=== PATIENT | female | born 1960 | race Caucasian/White ===

== ENCOUNTER → 2016-04-02 | Outpatient (CLI) | payer OTHER ==
[~2016-04-02] MED LIST: ADVAIR 100/501 DISK IH; CLONAZEPAM1 MG PO; FLEXERIL10 MG PO; FUROSEMIDE40 MG PO; HYDROCHLOROTHIA25 MG PO; JANUMET 50/11 TABLET PO; LEVAQUIN750 MG PO; LIBRIUM25 MG PO; LOTENSIN10 MG PO; NADOLOL20 MG PO; NEURONTIN100 MG PO; NEURONTIN400 MG PO; NICOTINE PATCH1 EAC2 TD; NORVASC5 MG PO; OXAYDO5 MG PO; PANTOPRAZOLE SO40 MG PO; PERCOCET 5/31 TABLET PO; PREDNISONE10 MG PO; PROTONIX40 MG PO; PROVENTIL HFA6.7 GM IH
== END | disposition home or self-care (01) ==
LOC: RAD 16:15
DX: M17.11 Unilateral primary osteoarthritis, right knee (principal); M25.762 Osteophyte, left knee; M25.562 Pain in left knee; M79.89 Other specified soft tissue disorders
CPT/HCPCS: 73564

== ENCOUNTER → 2016-06-12 | Outpatient (CLI) | payer OTHER | END | disposition home or self-care (01) | LOC: RAD 09:53 | DX: K74.60 Unspecified cirrhosis of liver (principal); R16.1 Splenomegaly, not elsewhere classified; K80.20 Calculus of gallbladder without cholecystitis without obstruction | CPT/HCPCS: 76700 ==

== ENCOUNTER → 2016-09-05 | Outpatient (CLI) | payer OTHER | END | disposition home or self-care (01) | LOC: RAD 14:42 | DX: M79.89 Other specified soft tissue disorders (principal); M25.572 Pain in left ankle and joints of left foot | CPT/HCPCS: 73610 ==

== ENCOUNTER → 2017-07-14 | Outpatient (CLI) | payer BC, OTHER | END | disposition home or self-care (01) | LOC: NUC 14:28 | DX: L03.116 Cellulitis of left lower limb (principal); M19.072 Primary osteoarthritis, left ankle and foot | CPT/HCPCS: 78315; 78999; A9503 ==